=== PATIENT | female | born 2000 | race Caucasian/White ===

== ENCOUNTER 2019-10-09 11:07 | Emergency (ER) | payer OTHER ==
[2019-10-09 11:12] VITALS: BP 133/88
--- NOTE | 2019-10-09 11:51 | ER Document Report ---
HPI - HPI Time Seen by Provider: 10/09/19 11:42 Notes: 18-year-old female presents to the emergency room for complaints of right ear pain, tried to lavage her ear out with water without any relief x 3 days ago. Reports pain is 3 out of 10. Denies any loss of hearing. Reports clear drainage from the ear. Denies any foreign body in her ear. Does not try to see her PCP due to being out of town. Has not tried any [id number] medications. Denies fevers, chills, chest pain,palpitations, shortness of breath, dyspnea, nausea, vomiting, diarrhea, abdominal pain, hematuria,blurred vision, double vision, loss of vision, speech changes, LH, dizziness, syncope, headaches, wheezing, ST, URI, neck pain, weakness, bowel or bladder dysfunction, saddle anesthesia, numbness or tingling in bilateral upper or lower extremities equally, muscle paralysis, weakness in bilateral upper or lower extremities equally or rash. Denies IV drug use. MEDICATIONS: I agree with the patient medications as charted by the RN. ALLERGIES: I agree with the allergies as charted by the RN. PAST MEDICAL HISTORY/PAST SURGICAL HISTORY: Reviewed and agree as charted by RN. SOCIAL HISTORY: Reviewed and agree as charted by RN. FAMILY HISTORY: No significant familial comorbid conditions directly related to patient complaint EXAM: Reviewed vital signs as charted by RN. REVIEW OF SYSTEMS:reviewed vital signs by RN CONSTITUTIONAL : Denies fever, chills, or sweats. Denies recent illness. EENT: Right ear pain. denies eye, ear, throat, or mouth pain or symptoms. Denies nasal or sinus congestion or discharge. Denies throat, tongue, or mouth swelling or difficulty swallowing. CARDIOVASCULAR: Denies chest pain. Denies palpitations or racing or irregular heart beat. Denies ankle edema. RESPIRATORY: Denies cough, cold, or chest congestion. Denies shortness of breath, difficulty breathing, or wheezing. GASTROINTESTINAL: Denies abdominal pain or distention. Denies nausea, vomiting, or diarrhea. Denies blood in vomitus, stools, or per rectum. Denies black, tarry stools. Denies constipation. GENITOURINARY: Denies difficulty urinating, painful urination, burning, frequency, blood in urine, or discharge. FEMALE GENITOURINARY: Denies vaginal bleeding, heavy or abnormal periods, ir regular periods. Denies vaginal discharge or odor. MUSCULOSKELETAL: Denies back or neck pain or stiffness. Denies joint pain or swelling. SKIN: Denies rash, lesions or sores. HEMATOLOGIC : Denies easy bruising or bleeding. LYMPHATIC: Denies swollen, enlarged glands. NEUROLOGICAL: Denies confusion or altered mental status. Denies passing out or loss of consciousness. Denies dizziness or lightheadedness. Denies headache. Denies weakness or paralysis or loss of use of either side. Denies problems with gait or speech. Denies sensory loss, numbness, or tingling. Denies seizures. PSYCHIATRIC: Denies anxiety or stress. Denies depression, suicidal ideation, or homicidal ideation. ALL OTHER SYSTEMS REVIEWED AND NEGATIVE. PHYSICAL EXAMINATION: GENERAL: Well-appearing, well-nourished and in no acute distress. HEAD: Atraumatic, normocephalic. EYES: Pupils equal round and reactive to light, extraocular movements intact, conjunctiva are normal. ENT: Nares patent, oropharynx clear without exudates. Moist mucous membranes. Right external canal with erythema and scant swelling with clear drainage, R TM with scant erythema, intact. Left external canal pink, no inflammation or erythema. L TM pearly zimmer, intact NECK: Normal range of motion, supple without lymphadenopathy LUNGS: Breath sounds clear to auscultation bilaterally and equal. No wheezes rales or rhonchi. HEART: Regular rate and rhythm without murmurs ABDOMEN: Soft, nontender, nondistended abdomen. No guarding, no rebound. No masses appreciated. Female : deferred Musculoskeletal: Normal range of motion, no pitting or edema. No cyanosis. NEUROLOGICAL: Cranial nerves grossly intact. Normal speech, normal gait. Normal sensory, motor exams PSYCH: Normal mood, normal affect. SKIN: Warm, Dry, normal turgor, no rashes or lesions noted. Dictation was performed using [employer] voice recognition software Past Medical History - General Information source: Patient - Social History Smoking Status: Never Smoker Family History: Reviewed & Not Pertinent Vertical Provider Document - CONSTITUTIONAL Agree With Documented VS: Yes Exam Limitations: No Limitations General Appearance: WD/WN Course - Re-evaluation Re-evalutation: 10/09/19 11:46 Afebrile vital stable no distress. Reevaluation a pulse ox which was 98% on room air and heart rate 92 bpm which was done by this provider with Mikala Rice RN present. Discussed that she needs to avoid getting any water in her affected ear, new or cottonball while showering, cannot go underwater while she is being treated for an external ear infection and a inner ear infection. Patient will be treated with oral and optic drops as directed. Ice alternate between Tylenol and ibuprofen for pain control. After performing a Medical Screening Examination, I estimate there is LOW risk for malignant otitis media, mastoiditis, MENINGITIS, or ACUTE CORONARY SYNDROME, thus I consider the discharge disposition reasonable. I have reevaluated this patient multiple times and no significant life threatening changes are noted. The patient and I have discussed the diagnosis and risks, and we agree with discharging home to follow-up on an outpatient basis with the understanding that symptoms and presentations can change. We also discussed returning to the Emergency Department immediately if new or worsening symptoms occur. We have discussed the symptoms which are most concerning (e.g., high fevers, confusion) that necessitate immediate return. - Vital Signs Vital signs: Temp Pulse Resp BP Pulse Ox 98.1 F 107 H 16 133/88 H 95 10/09/19 11:11 10/09/19 11:11 10/09/19 11:11 10/09/19 11:11 10/09/19 11:11 Discharge - Discharge Clinical Impression: Right otitis externa Qualifiers: Otitis externa type: swimmer's ear Chronicity: acute Qualified Code(s): H60.331 - Swimmer's ear, right ear Right otitis media Qualifiers: Otitis media type: suppurative Chronicity: acute Recurrence: non-recurrent Spontaneous tympanic membrane rupture: without spontaneous rupture Qualified Code(s): H66.001 - Acute suppurative otitis media without spontaneous rupture of ear drum, right ear Condition: Stable Disposition: HOME, SELF-CARE Instructions: Acetaminophen, Otitis Externa ([facility]), Use of Ear Drops ([facility]), Otitis Media ([facility]) Additional Instructions: Use medication as directed. Do not go swimming or put your head underwater. Take [id number] ibuprofen and Tylenol as needed for pain control. Wear cotton ball in your affected ear when showering to prevent water to getting into your ear. Please return to the emergency room immediately if you experience worsening pain, fever, issues with hearing, jaw pain, chest pain shortness of breath, etc Return immediately for any new or worsening symptoms. Follow up with primary care provider, call tomorrow to make followup appointment. Prescriptions: Amoxicillin/Potassium Clav [Augmentin 875-125 Tablet] 1 tab PO BID #20 tablet Ofloxacin [Floxin 0.3% Otic Drops 5 ml] 5 drop OT BID 7 Days #1 bottle Referrals: LAMAR GARRISON DO [NO LOCAL MD] - Follow up as needed
== END 2019-10-09 11:55 | disposition home or self-care (01) ==
LOC: ER 11:07
DX: H60.331 Swimmer's ear, right ear (principal); H66.001 Acute suppurative otitis media without spontaneous rupture of ear drum, right ear; H92.01 Otalgia, right ear
CPT/HCPCS: 99282